=== PATIENT | male | born 1985 | race Caucasian/White ===

== ENCOUNTER 2017-02-26 17:48 | Emergency (ER) | payer SELFPAY ==
[2017-02-26 18:03] VITALS: BP 163/95
[2017-02-26] MEDS ORDERED: LIDOCAINE 1% INJ-PF (10 MG/ML) 30 ML SDV INJ ONE (19:06)
--- NOTE | 2017-02-26 19:12 | ER Document Report ---
ED Wound - General Chief Complaint: Laceration Stated Complaint: RIGHT HAND INJURY Time Seen by Provider: 02/26/17 18:50 Notes: 31 yo male cut right thumb with pocket knife while making a paracord bracelet. + active bleeding. last tetnus 2014 TRAVEL OUTSIDE OF THE [place] IN LAST 30 DAYS: No - HPI Patient complains to provider of: Laceration Occurred: Just prior to arrival Quality of pain: Achy Context: Injury Skin Color: Normal Capillary refill: < 3 seconds - Related Data Allergies/Adverse Reactions: No Known Allergies Allergy (Unverified 02/26/17 18:01) Past Medical History - General Information source: Patient - Social History Smoking Status: Current Every Day Smoker Chew tobacco use (# tins/day): No Frequency of alcohol use: None Drug Abuse: None Lives with: Family Family History: Reviewed & Not Pertinent Patient has suicidal ideation: No Patient has homicidal ideation: No - Medical History Medical History: Negative Renal/ Medical History: Denies: Hx Peritoneal Dialysis Surgical Hx: Negative - Immunizations Hx Diphtheria, Pertussis, Tetanus Vaccination: Yes - 2011 Review of Systems - Review of Systems Constitutional: No symptoms reported EENT: No symptoms reported Cardiovascular: No symptoms reported Respiratory: No symptoms reported Gastrointestinal: No symptoms reported Genitourinary: No symptoms reported Male Genitourinary: No symptoms reported Musculoskeletal: No symptoms reported Skin: See HPI Hematologic/Lymphatic: No symptoms reported Neurological/Psychological: No symptoms reported Physical Exam - Vital signs Vitals: Temp Pulse Resp BP Pulse Ox 99.4 F 102 H 16 163/95 H 100 02/26/17 18:01 02/26/17 18:01 02/26/17 18:01 02/26/17 18:01 02/26/17 18:01 Interpretation: Normal - General General appearance: Appears well, Alert - HEENT Head: Normocephalic, Atraumatic Eyes: Normal Pupils: PERRL - Respiratory Respiratory status: No respiratory distress Chest status: Nontender Breath sounds: Normal Chest palpation: Normal - Cardiovascular Rhythm: Regular Heart sounds: Normal auscultation Murmur: No - Abdominal Inspection: Normal Distension: No distension Bowel sounds: Normal Tenderness: Nontender Organomegaly: No organomegaly - Back Back: Normal, Nontender - Extremities General upper extremity: Normal inspection, Nontender, Normal color, Normal ROM , Normal temperature General lower extremity: Normal inspection, Nontender, Normal color, Normal ROM , Normal temperature, Normal weight bearing. No: Ginny's sign - Neurological Neuro grossly intact: Yes Cognition: Normal Orientation: AAOx4 [place] Coma Scale Eye Opening: Spontaneous [place] Coma Scale Verbal: Oriented Willis Coma Scale Motor: Obeys Commands Willis Coma Scale Total: 15 Speech: Normal Motor strength normal: LUE, RUE, LLE, RLE Sensory: Normal - Psychological Associated symptoms: Normal affect, Normal mood - Skin Skin Temperature: Warm - flap lac to right thumb. no tendon injury. flexion/ extension intact. Skin Moisture: Dry Skin Color: Normal Skin irregularity: Laceration Course - Vital Signs Vital signs: Temp Pulse Resp BP Pulse Ox 99.4 F 102 H 16 163/95 H 100 02/26/17 18:01 02/26/17 18:01 02/26/17 18:01 02/26/17 18:01 02/26/17 18:01 Procedures - Laceration/Wound Repair right thumb Wound length (cm): 2 Wound's Depth, Shape: Superficial, Flap Anesthetic type: 1% Lidocaine Wound explored: Clean Wound Repaired With: Sutures Suture Size/Type: 5:0, Prolene Number of Sutures: 10 Layer Closure?: No Post-procedure wound care: Sterile dressing applied Post-procedure NV exam normal: Yes Complications: No Discharge - Discharge Clinical Impression: Thumb laceration Qualifiers: Encounter type: initial encounter Damage to nail status: without damage Foreign body presence: without foreign body Laterality: right Qualified Code(s) : S61.011A - Laceration without foreign body of right thumb without damage to nail, initial encounter Condition: Stable Disposition: HOME, SELF-CARE Instructions: Laceration Care ([facility]), Soap Cleansing ([facility]), Antibiotic Ointment Protection ([facility]), Oral Narcotic Medication ([facility]) Additional Instructions: Return to ER for suture removal in 9-10 days keep clean and dry wear splint for protection and comfort Prescriptions: Cephalexin Monohydrate [Keflex 500 mg Capsule] 500 mg PO QID #20 capsule Hydrocodone/Acetaminophen [Kake 5-325 Tablet] 1 each PO Q4H PRN #15 tablet PRN Reason:
[2017-02-26] MEDS ORDERED: HYDROCODONE/ACETAMINOPHEN 5-325 MG 6 TAB/DSPK PO PRN (20:46)
== END 2017-02-26 21:03 | disposition home or self-care (01) ==
LOC: ER 17:48
PROC: 0HQFXZZ Repair Right Hand Skin, External Approach (ICD-10-PCS; principal; 2017-02-26)
DX: S61.011A Laceration without foreign body of right thumb without damage to nail, initial encounter (principal); W26.0XXA Contact with knife, initial encounter; F17.200 Nicotine dependence, unspecified, uncomplicated
CPT/HCPCS: 12001; 99282; J3490